=== PATIENT | male | born 1950 | race Caucasian/White ===

== ENCOUNTER → 2020-03-10 11:30 | Outpatient (BNVA) | payer MEDICARE, SELFPAY | PROVIDERS: Visit Provider Urology | DX: R97.21 Rising PSA following treatment for malignant neoplasm of prostate (principal); C61 Malignant neoplasm of prostate | CPT/HCPCS: Q3014 ==

== ENCOUNTER → 2020-07-01 11:19 | Outpatient (BNVA) | payer MEDICARE, SELFPAY | PROVIDERS: PCP Internal Medicine; Visit Provider Urology | DX: C79.82 Secondary malignant neoplasm of genital organs (principal); C61 Malignant neoplasm of prostate | CPT/HCPCS: Q3014 ==

== ENCOUNTER → 2020-12-21 13:46 | Outpatient (BNVA) | payer MEDICARE, SELFPAY | PROVIDERS: PCP Internal Medicine; Visit Provider Urology | DX: C79.82 Secondary malignant neoplasm of genital organs (principal); R97.21 Rising PSA following treatment for malignant neoplasm of prostate | CPT/HCPCS: Q3014 ==

== ENCOUNTER → 2021-03-23 14:21 | Outpatient (BNVA) | payer MEDICARE, SELFPAY | PROVIDERS: PCP Internal Medicine; Visit Provider Urology | DX: C79.82 Secondary malignant neoplasm of genital organs (principal) | CPT/HCPCS: Q3014 ==

== ENCOUNTER → 2021-07-27 13:21 | Outpatient (BNVA) | payer MEDICARE, SELFPAY | PROVIDERS: PCP Internal Medicine; Visit Provider Urology | DX: Z13.89 Encounter for screening for other disorder (principal) | CPT/HCPCS: Q3014 ==

== ENCOUNTER → 2021-11-29 11:11 | Outpatient (BNVA) | payer MEDICARE, SELFPAY | PROVIDERS: PCP Internal Medicine; Visit Provider Urology | DX: C61 Malignant neoplasm of prostate (principal); C79.51 Secondary malignant neoplasm of bone | CPT/HCPCS: 99212 ==

== ENCOUNTER → 2022-03-01 10:57 | Outpatient (BNVA) | payer MEDICARE, SELFPAY | PROVIDERS: PCP Internal Medicine; Visit Provider Urology | DX: C61 Malignant neoplasm of prostate (principal); C79.51 Secondary malignant neoplasm of bone | CPT/HCPCS: 99212 ==

== ENCOUNTER → 2022-06-01 08:47 | Outpatient (BNVA) | payer MEDICARE, SELFPAY | PROVIDERS: PCP Internal Medicine; Visit Provider Urology | DX: C61 Malignant neoplasm of prostate (principal); C79.51 Secondary malignant neoplasm of bone | CPT/HCPCS: Q3014 ==

== ENCOUNTER → 2022-08-30 14:23 | Outpatient (BNVA) | payer MEDICARE, SELFPAY | PROVIDERS: PCP Internal Medicine; Visit Provider Urology | DX: C61 Malignant neoplasm of prostate (principal); C79.51 Secondary malignant neoplasm of bone | CPT/HCPCS: 99212 ==

== ENCOUNTER 2023-01-03 09:24 | Outpatient (AMB) | payer MEDICARE, SELFPAY ==
--- NOTE | 2023-01-03 09:32 | A.OFFVIS_ITS ---
Intake Intake Visit Reasons: 4M PSA/TESTOSTERONE(sent) Intake Note: Patient is present for Follow Up Urology Med: Finasteride Antibiotic Allergy: None Blood Thinner: None [facility]acy[facility] Allergies No Known Allergies Allergy (Verified 08/30/22 14:50) HPI HPI Comments History of Present Illness Details Victor Manuel is a very pleasant male. He is a patient of Dr. Vasquez. 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 02/07 Intermittent hormone therapy 18 mo nth series of GnRH Has PSA recurrent prostate cancer. Prior treatment brachytherapy and now on intermittent hormones. He would prefer allow T to recover and only have next PSA shot when PSA in the 4-8 range. Prostate cancer was diagnosed June 2005 - elevated PSA mid 2015 - good response to 5AR suggestive of BPH recurrence rather than prostate cancer. The [place] grade is 3+3, PSA at diagnosis 4.9, PSA jennifer = 0.2. TNM Classification of Malignant Tumours (TNM) T1c Initial therapy included brachytherapy in September 2005. Therapy for metastatic/CRPC included 01/22/18 GnRH 6m first dose + finasteride 02/08 , GnRH agonist Recent labs included a PSA (prostate-specific antigen) June 2014 1.3, Nov 2015 2.2, Mar 2016 0.9,October 2016 1.3, Apr 2017 1.7, 09/07 2.3, 01/08 3.0, - 05/11, a PSA (prostate-specific antigen) < 0.1, T < 3, 08/09 0.1, T < 3, 11/08 PSA < 0.1, T 39, 02/08 PSA < 0.1, T 830, 05/12 PSA < 0.1, T < 3, 11/09 PSA < 0.1 T 4, 02/09 PSA 0.1, T 825 - 07/11 PSA <0.1, 10/11 0.2, 03/13 0.3. 07/12 0.5, 02/11 0.7 Recent imaging included 10/08 , a CT (computed tomography) scan - no evidence of metastatic disease 10/08 Bone Scan - suspicious lesions on right ribs 01/08 XRay right rib confirm small 6th rib lesion 08/09 New uptake at left femur 08/09 , a DEXA scan, showing osteopenia/osteoporosis - osteopenia 02/08 , a bone scan, small rema lesions no progression - 11/09 bone scan - no progression - 07/11 bone scan no progression still with some uptake, - 07/12 bone scan with multifocal osteoblastic stable disease - 02/11 bone scan stable osteoblastic multifocal rib lesions - 07/13 bone scan stable osteoblastic multifocal rib lesion PFSH Medical History BPH (benign prostatic hyperplasia) Coronary artery disease Elevated PSA H/O sigmoidoscopy History of brachytherapy Osteoporosis Prostate cancer Surgical History History of appendectomy Review of Systems Const Denies chills and Denies fever(s) Card Reports no additional complaints and Denies syncope Resp Denies cough GI Denies abdominal pain and Denies heartburn Reports as per HPI and Denies change in libido Neuro Denies syncope Psych Denies change in libido Endo Denies change in libido Physical Exam Const General: cooperative, healthy appearing, comfortable and no acute distress Orientation/consciousness: patient oriented x3 HEENT Face and sinus: Yes normal facial exam Mouth: moist mucous membranes Neck Neck: Yes normal visual inspection, Yes full ROM and Yes trachea midline Chest Chest palpation & inspection: normal inspection of the chest Resp Effort & Inspection: normal respiratory effort, able to speak in complete sentences and no respiratory distress GI Inspection: Yes normal to inspection Back/Spine/Pelvis Cervical Spine: normal cervical lordosis Thoracic/Lumbar Spine: thoracic and lumbar spine normal to inspection Skin General skin exam: no rashes or lesions noted Neuro General: patient oriented x3, gait normal, tone normal and moves all extremities Extrem General: Yes normal to inspection and Yes capillary refill normal Assessment & Plan Assessment & Plan (1) Prostate cancer metastatic to bone: Code(s): C61 - Malignant neoplasm of prostate; C79.51 - Secondary malignant neoplasm of bone Plan Four month follow-up psa tele Orders: Orders Prostate Specific Antigen 4 Months C61 - Malignant neoplasm of prostate, C79.51 - Secondary malignant neoplasm of bone Patient Instructions: Imaging studies, laboratory and physical exam results were discussed and reviewed in detail. No major barriers to patient understanding were identified. An opportunity to ask questions regarding the treatment plan was provided. All questions were answered. The patient expressed understanding and agreement with the above treatment plan. The patient is aware they should contact our office by phone for worsening of their current condition or the appearance of new urologic symptoms. Compliance is encouraged with any medications and followup testing that is ordered. It is a privilege to participate in the urologic care of your patient. If you have any questions or concerns regarding treatment for the above conditions, or other urologic issues, please do not hesitate to contact me. The office telephone contact is [phone]. This note is constructed using voice recognition software. While every effort has been made to ensure accuracy cut off saw operator pipe blanks errors may have been included. Yours sincerely, Dr Elias Schwartz MD, [facility] - Urology Providers of Expert, Compassionate Care for the Genitourinary System Coding Level of Care Code Est Pt Level 3 (76425) Diagnoses Prostate cancer metastatic to bone C61; C79.51
== END 2023-01-03 09:42 | disposition home or self-care (01) ==
PROVIDERS: PCP Internal Medicine; Visit Provider Urology
DX: C61 Malignant neoplasm of prostate (principal); C79.51 Secondary malignant neoplasm of bone
CPT/HCPCS: 99213

== ENCOUNTER → 2023-01-03 09:24 | Outpatient (BNVA) | payer MEDICARE, SELFPAY | PROVIDERS: Visit Provider Urology | DX: C61 Malignant neoplasm of prostate (principal); C79.51 Secondary malignant neoplasm of bone | CPT/HCPCS: 99212 ==

== ENCOUNTER 2023-05-01 09:04 | Outpatient (AMB) | payer MEDICARE, SELFPAY ==
--- NOTE | 2023-05-01 09:04 | MHC.OFFVIS ---
Intake Intake Visit Reasons: 4M PSA(set) Intake Note: Patient is Present for Telephone Follow Up PSA Urology Med: Finasteride Antibiotic Allergy: None Blood Thinner: None PSA 04/18/23- 2.4 Allergies No Known Allergies Allergy (Verified 05/01/23 09:12) Medication List - Last Reconciled 05/01/23 by Elias Schwartz MD alendronate 70 mg PO DAILY amlodipine 5 mg PO DAILY atorvastatin 40 mg PO BEDTIME finasteride 5 mg PO DAILY 90 days lisinopril 5 mg PO DAILY metoprolol succinate ER 50 mg PO DAILY HPI HPI Comments History of Present Illness Details Victor Manuel is a very pleasant male. He is a patient of Dr. Vasquez. He is seen for the following urologic conditions - prostate cancer - stable osteoblastic metastatic bone disease Telemedicine Evaluation 15 min Consultation [email or web address] Curt Video attempted PSA continues to remain stable Anti androgens cycling with finasteride Testosterone has recovered Threshold for restarting GnRH we would be PSA approximately 4-6 08/13 stable PSA, stable bone scan PSA 07/12 0.5, 11/11 0.8 T 926, 02/11 0.7, 05/15 1.7, 08/13 1.5, 12/13 1.9 T 1000, 05/16 2.4, Metastatic: Initial therapy 2005 with recurrence. 02/07 Intermittent hormone therapy 18 month series of GnRH Has PSA recurrent prostate cancer. Prior treatment brachytherapy and now on intermittent hormones. He would prefer allow T to recover and only have next PSA shot when PSA in the 4-8 range. Prostate cancer was diagnosed June 2005 - elevated PSA mid 2015 - good response to 5AR suggestive of BPH recurrence rather than prostate cancer. The [place] grade is 3+3, PSA at diagnosis 4.9, PSA jennifer = 0.2. TNM Classification of Malignant Tumours (TNM) T1c Initial therapy included brachytherapy in September 2005. Therapy for metastatic/CRPC included 01/22/18 GnRH 6m first dose + finasteride 02/08 , GnRH agonist Recent labs included a PSA (prostate-specific antigen) June 2014 1.3, Nov 2015 2.2, Mar 2016 0.9,October 2016 1.3, Apr 2017 1.7, 09/07 2.3, 01/08 3.0, - 05/11, a PSA (prostate-specific antigen) < 0.1, T < 3, 08/09 0.1, T < 3, 11/08 PSA < 0.1, T 39, 02/08 PSA < 0.1, T 830, 05/12 PSA < 0.1, T < 3, 11/09 PSA < 0.1 T 4, 02/09 PSA 0.1, T 825 - 07/11 PSA <0.1, 10/11 0.2, 03/13 0.3. 07/12 0.5, 02/11 0.7 Recent imaging included 10/08 , a CT (computed tomography) scan - no evidence of metastatic disease 10/08 Bone Scan - suspicious lesions on right ribs 01/08 XRay right rib confirm small 6th rib lesion 08/09 New uptake at left femur 08/09 , a DEXA scan, showing osteopenia/osteoporosis - osteopenia 02/08 , a bone scan, small rema lesions no progression - 11/09 bone scan - no progression - 07/11 bone scan no progression still with some uptake, - 07/12 bone scan with multifocal osteoblastic stable disease - 02/11 bone scan stable osteoblastic multifocal rib lesions - 07/13 bone scan stable osteoblastic multifocal rib lesion PFSH Medical History History of brachytherapy H/O sigmoidoscopy Coronary artery disease Osteoporosis Elevated PSA BPH (benign prostatic hyperplasia) Prostate cancer Surgical History History of appendectomy Review of Systems Const All systems reviewed & are unremarkable except as noted in HPI and below Reports no additional complaints Resp Reports no additional complaints GI Reports no additional complaints Reports as per HPI Musc Reports no additional complaints Physical Exam Telemedicine evaluation Appropriate responses Regular breathing rate and rhythm HEENT Head: Yes normal to inspection Ears: hearing grossly normal bilaterally Eyes General: appearance normal, both eyes and all related structures Neck Neck: Yes normal visual inspection Chest Chest palpation & inspection: normal inspection of the chest Resp Effort & Inspection: normal respiratory effort and able to speak in complete sentences Assessment & Plan Assessment & Plan (1) Prostate cancer metastatic to bone: Code(s): C61 - Malignant neoplasm of prostate; C79.51 - Secondary malignant neoplasm of bone Plan 4 month f/u labs and bone scan Orders: Orders Prostate Specific Antigen 4 Months C61 - Malignant neoplasm of prostate, C79.51 - Secondary malignant neoplasm of bone Testosterone, Total 4 Months C61 - Malignant neoplasm of prostate, C79.51 - Secondary malignant neoplasm of bone NM bone scan whole body 4 Months C61 - Malignant neoplasm of prostate, C79.51 - Secondary malignant neoplasm of bone Patient Instructions: Imaging studies, laboratory and physical exam results were discussed and reviewed in detail. No major barriers to patient understanding were identified. An opportunity to ask questions regarding the treatment plan was provided. All questions were answered. The patient expressed understanding and agreement with the above treatment plan. The patient is aware they should contact our office by phone for worsening of their current condition or the appearance of new urologic symptoms. Compliance is encouraged with any medications and followup testing that is ordered. It is a privilege to participate in the urologic care of your patient. If you have any questions or concerns regarding treatment for the above conditions, or other urologic issues, please do not hesitate to contact me. The office telephone contact is [phone]. This note is constructed using voice recognition software. While every effort has been made to ensure accuracy mother baby rn errors may have been included. Yours sincerely, Dr Elias Schwartz MD, [facility] - Urology Providers of Expert, Compassionate Care for the Genitourinary System Telehealth Telehealth Location of provider rendering services: practice address Location of patient: address on file Patient Identification confirmed using: Name, : Yes Telehealth method: video Patient verbally consented to treatment: Yes Patient verbally consented to billing insurance company: Yes Patient informed of any privacy concerns related to visit: Yes Coding Level of Care Code Tele Est Pt Level 4 (06750) Diagnoses Prostate cancer metastatic to bone C61; C79.51
== END 2023-05-01 10:13 | disposition home or self-care (01) ==
LOC: HO.HUSH 09:04
PROVIDERS: PCP Internal Medicine; Visit Provider Urology
DX: C61 Malignant neoplasm of prostate (principal); C79.51 Secondary malignant neoplasm of bone
CPT/HCPCS: 99213

== ENCOUNTER → 2023-05-01 09:04 | Outpatient (BNVA) | payer MEDICARE, SELFPAY | PROVIDERS: PCP Internal Medicine; Visit Provider Urology ==

== ENCOUNTER 2023-08-31 10:10 | Outpatient (AMB) | payer MEDICARE, SELFPAY ==
--- NOTE | 2023-08-31 10:28 | A.OFFVIS_ITS ---
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 He is a patient of Dr. Vasquez. He is seen for the following urologic conditions - prostate cancer - stable osteoblastic metastatic bone disease PSA continues to remain stable Anti androgens cycling with finasteride Testosterone has recovered Threshold for restarting GnRH we would be PSA approximately 4-6 PSA 07/12 0.5, 11/11 0.8 T 926, 02/11 0.7, 05/15 1.7, 08/13 1.5, 12/13 1.9 T 1000, 05/16 2.4, 09/13 2.8 1046 Remains on alendronate for osteopenia Plan for repeat labs and bone scan in 4 months Metastatic: Initial therapy 2005 with recurrence. 02/07 Intermittent hormone therapy 18 month series of GnRH Has PSA recurrent prostate cancer. Prior treatment brachytherapy and now on intermittent hormones. He would prefer allow T to recover and only have next PSA shot when PSA in the 4-8 range. Prostate cancer was diagnosed June 2005 - elevated PSA mid 2015 - good response to 5AR suggestive of BPH recurrence rather than prostate cancer. The [place] grade is 3+3, PSA at diagnosis 4.9, PSA jennifer = 0.2. TNM Classification of Malignant Tumours (TNM) T1c Initial therapy included brachytherapy in September 2005. Therapy for metastatic/CRPC included 01/22/18 GnRH 6m first dose + finasteride Recent labs included a PSA (prostate-specific antigen) June 2014 1.3, Nov 2015 2.2, Mar 2016 0.9,October 2016 1.3, Apr 2017 1.7, 09/07 2.3, 01/08 3.0, - 05/11, a PSA (prostate-specific antigen) < 0.1, T < 3, 08/09 0.1, T < 3, 11/08 PSA < 0.1, T 39, 02/08 PSA < 0.1, T 830, 05/12 PSA < 0.1, T < 3, 11/09 PSA < 0.1 T 4, 02/09 PSA 0.1, T 825 - 07/11 PSA <0.1, 10/11 0.2, 03/13 0.3. 07/12 0.5, 02/11 0.7 Recent imaging included 10/08 , a CT (computed tomography) scan - no evidence of metastatic disease 10/08 Bone Scan - suspicious lesions on right ribs 01/08 XRay right rib confirm small 6th rib lesion 08/09 New uptake at left femur 08/09 , a DEXA scan, showing osteopenia/osteoporosis - osteopenia 02/08 , a bone scan, small rema lesions no progression - 11/09 bone scan - no progression - 07/11 bone scan no progression still with some uptake, - 07/12 bone scan with multifocal osteoblastic stable disease - 02/11 bone scan stable osteoblastic multifocal rib lesions - 08/13 bone scan stable osteoblastic multifocal rib lesion PFSH Medical History History of brachytherapy H/O sigmoidoscopy Coronary artery disease Osteoporosis Elevated PSA BPH (benign prostatic hyperplasia) Prostate cancer Surgical History History of appendectomy Review of Systems Const Denies chills and Denies fever(s) Card Reports no additional complaints and Denies syncope Resp Denies cough GI Denies abdominal pain and Denies heartburn Reports as per HPI and Denies change in libido Neuro Denies syncope Psych Denies change in libido Endo Denies change in libido Physical Exam Const General: cooperative, healthy appearing, comfortable and no acute distress Orientation/consciousness: patient oriented x3 HEENT Face and sinus: Yes normal facial exam Mouth: moist mucous membranes Neck Neck: Yes normal visual inspection, Yes full ROM and Yes trachea midline Chest Chest palpation & inspection: normal inspection of the chest Resp Effort & Inspection: normal respiratory effort, able to speak in complete sentences and no respiratory distress GI Inspection: Yes normal to inspection Back/Spine/Pelvis Cervical Spine: normal cervical lordosis Thoracic/Lumbar Spine: thoracic and lumbar spine normal to inspection Skin General skin exam: no rashes or lesions noted Neuro General: patient oriented x3, gait normal, tone normal and moves all extremities Extrem General: Yes normal to inspection and Yes capillary refill normal Assessment & Plan Assessment & Plan (1) Prostate cancer metastatic to bone: Code(s): C61 - Malignant neoplasm of prostate; C79.51 - Secondary malignant neoplasm of bone Category: Medical Plan Four month follow-up bone scan PSA Orders: Orders NM bone scan whole body 4 Months C61 - Malignant neoplasm of prostate, C79.51 - Secondary malignant neoplasm of bone Prostate Specific Antigen 4 Months C61 - Malignant neoplasm of prostate, C79.51 - Secondary malignant neoplasm of bone Patient Instructions: Imaging studies, laboratory and physical exam results were discussed and reviewed in detail. No major barriers to patient understanding were identified. An opportunity to ask questions regarding the treatment plan was provided. All questions were answered. The patient expressed understanding and agreement with the above treatment plan. The patient is aware they should contact our office by phone for worsening of their current condition or the appearance of new urologic symptoms. Compliance is encouraged with any medications and followup testing that is ordered. It is a privilege to participate in the urologic care of your patient. If you have any questions or concerns regarding treatment for the above conditions, or other urologic issues, please do not hesitate to contact me. The office telephone contact is [phone]. This note is constructed using voice recognition software. While every effort has been made to ensure accuracy service manager errors may have been included. Yours sincerely, Dr Elias Schwartz MD, [facility] - Urology Providers of Expert, Compassionate Care for the Genitourinary System Coding Level of Care Code Est Pt Level 4 (67741) Diagnoses Prostate cancer metastatic to bone C61; C79.51
== END 2023-08-31 11:11 | disposition home or self-care (01) ==
PROVIDERS: PCP Internal Medicine; Visit Provider Urology
DX: C61 Malignant neoplasm of prostate (principal); C79.51 Secondary malignant neoplasm of bone
CPT/HCPCS: 99213

== ENCOUNTER → 2023-08-31 10:10 | Outpatient (BNVA) | payer MEDICARE, SELFPAY | PROVIDERS: PCP Internal Medicine; Visit Provider Urology | DX: C61 Malignant neoplasm of prostate (principal); C79.51 Secondary malignant neoplasm of bone | CPT/HCPCS: 99212 ==

== ENCOUNTER 2024-01-01 09:26 | Outpatient (AMB) | payer MEDICARE, SELFPAY ==
--- NOTE | 2024-01-01 09:30 | A.OFFVIS_ITS ---
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 He is a patient of Dr. Vasquez. He is seen for the following urologic conditions - prostate cancer - stable osteoblastic metastatic bone disease Four month follow-up PSA continues to remain stable Anti androgens cycling with finasteride Testosterone has recovered Threshold for restarting GnRH we would be PSA approximately 4-6 PSA 07/12 0.5, 11/11 0.8 T 926, 02/11 0.7, 05/15 1.7, 08/13 1.5, 12/13 1.9 T 1000, 05/16 2.4, 09/13 2.8 1046, 01/14 3.4 T 837 Remains on alendronate for osteopenia Metastatic: Initial therapy 2005 with recurrence. 02/07 Intermittent hormone therapy 18 month series of GnRH Has PSA recurrent prostate cancer. Prior treatment brachytherapy and now on intermittent hormones. He would prefer allow T to recover and only have next PSA shot when PSA in the 4-8 range. Prostate cancer was diagnosed June 2005 - elevated PSA mid 2015 - good response to 5AR suggestive of BPH recurrence rather than prostate cancer. The [place] grade is 3+3, PSA at diagnosis 4.9, PSA jennifer = 0.2. TNM Classification of Malignant Tumours (TNM) T1c Initial therapy included brachytherapy in September 2005. Therapy for metastatic/CRPC included 01/22/18 GnRH 6m first dose + finasteride Recent labs included a PSA (prostate-specific antigen) June 2014 1.3, Nov 2015 2.2, Mar 2016 0.9,October 2016 1.3, Apr 2017 1.7, 09/07 2.3, 01/08 3.0, - 05/11, a PSA (prostate-specific antigen) < 0.1, T < 3, 08/09 0.1, T < 3, 11/08 PSA < 0.1, T 39, 02/08 PSA < 0.1, T 830, 05/12 PSA < 0.1, T < 3, 11/09 PSA < 0.1 T 4, 02/09 PSA 0.1, T 825 - 07/11 PSA <0.1, 10/11 0.2, 03/13 0.3. 07/12 0.5, 02/11 0.7 Recent imaging included 10/08 , a CT (computed tomography) scan - no evidence of metastatic disease 10/08 Bone Scan - suspicious lesions on right ribs 01/08 XRay right rib confirm small 6th rib lesion 08/09 New uptake at left femur 08/09 , a DEXA scan, showing osteopenia/osteoporosis - osteopenia 02/08 , a bone scan, small rema lesions no progression - 11/09 bone scan - no progression - 07/11 bone scan no progression still with some uptake, - 07/12 bone scan with multifocal osteoblastic stable disease - 02/11 bone scan stable osteoblastic multifocal rib lesions - 08/13 bone scan stable osteoblastic multifocal rib lesion - stable right rib lesions. [facility] Medical History History of brachytherapy H/O sigmoidoscopy Coronary artery disease Osteoporosis Elevated PSA BPH (benign prostatic hyperplasia) Prostate cancer Surgical History History of appendectomy Review of Systems Const Denies chills and Denies fever(s) Card Reports no additional complaints and Denies syncope Resp Denies cough GI Denies abdominal pain and Denies heartburn Reports as per HPI and Denies change in libido Neuro Denies syncope Psych Denies change in libido Endo Denies change in libido Physical Exam Const General: cooperative, healthy appearing, comfortable and no acute distress Orientation/consciousness: patient oriented x3 HEENT Face and sinus: Yes normal facial exam Mouth: moist mucous membranes Neck Neck: Yes normal visual inspection, Yes full ROM and Yes trachea midline Chest Chest palpation & inspection: normal inspection of the chest Resp Effort & Inspection: normal respiratory effort, able to speak in complete sentences and no respiratory distress GI Inspection: Yes normal to inspection Back/Spine/Pelvis Cervical Spine: normal cervical lordosis Thoracic/Lumbar Spine: thoracic and lumbar spine normal to inspection Skin General skin exam: no rashes or lesions noted Neuro General: patient oriented x3, gait normal, tone normal and moves all extremities Extrem General: Yes normal to inspection and Yes capillary refill normal Assessment & Plan Assessment & Plan (1) Prostate cancer metastatic to bone: Code(s): C61 - Malignant neoplasm of prostate; C79.51 - Secondary malignant neoplasm of bone Category: Medical (2) Prostate cancer: Code(s): C61 - Malignant neoplasm of prostate Category: Medical Plan Four month follow-up labs tele Orders: Orders Prostate Specific Antigen 4 Months C61 - Malignant neoplasm of prostate Patient Instructions: Imaging studies, laboratory and physical exam results were discussed and revie wed in detail. No major barriers to patient understanding were identified. An opportunity to ask questions regarding the treatment plan was provided. All questions were answered. The patient expressed understanding and agreement with the above treatment plan. The patient is aware they should contact our office by phone for worsening of their current condition or the appearance of new urologic symptoms. Compliance is encouraged with any medications and followup testing that is ordered. It is a privilege to participate in the urologic care of your patient. If you have any questions or concerns regarding treatment for the above conditions, or other urologic issues, please do not hesitate to contact me. The office telephone contact is [phone]. This note is constructed using voice recognition software. While every effort has been made to ensure accuracy ceramic engineer errors may have been included. Yours sincerely, Dr Elias Schwartz MD, [facility] - Urology Providers of Expert, Compassionate Care for the Genitourinary System Coding Level of Care Code Est Pt Level 3 (97750) Diagnoses Prostate cancer metastatic to bone C61; C79.51 Prostate cancer C61
== END 2024-01-01 10:05 | disposition home or self-care (01) ==
PROVIDERS: PCP Internal Medicine; Visit Provider Urology
DX: C61 Malignant neoplasm of prostate (principal); C79.51 Secondary malignant neoplasm of bone
CPT/HCPCS: 99213

== ENCOUNTER → 2024-01-01 09:26 | Outpatient (BNVA) | payer MEDICARE, SELFPAY | PROVIDERS: PCP Internal Medicine; Visit Provider Urology | DX: C61 Malignant neoplasm of prostate (principal); C79.51 Secondary malignant neoplasm of bone | CPT/HCPCS: 99212 ==

== ENCOUNTER 2024-05-02 09:12 | Outpatient (AMB) | payer MEDICARE, SELFPAY ==
--- NOTE | 2024-05-02 09:13 | A.OFFVIS_ITS ---
Intake Visit Reasons: 4M PSA(Elevated) Intake Note: Pt presents to the office today as a telehealth appt for a 4 month PSA. Allergies No Known Allergies Allergy (Verified 05/02/24 09:13) HPI Comments Details: Victor Manuel is a very pleasant male. He is a patient of Dr. Vasquez. 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 02/07 Intermittent hormone therapy 18 month series of GnRH Has PSA recurrent prostate cancer. Prior treatment brachytherapy and now on intermittent hormones. He would prefer allow T to recover and only have next PSA shot when PSA in the 4-8 range. Prostate cancer was diagnosed June 2005 - elevated PSA mid 2015 - good response to 5AR suggestive of BPH recurrence rather than prostate cancer. The [place] grade is 3+3, PSA at diagnosis 4.9, PSA jennifer = 0.2. TNM Classification of Malignant Tumours (TNM) T1c Initial therapy included brachytherapy in September 2005. Therapy for metastatic/CRPC included 01/22/18 GnRH 6m first dose + finasteride Recent labs included a PSA (prostate-specific antigen) June 2014 1.3, Nov 2015 2.2, Mar 2016 0.9,October 2016 1.3, Apr 2017 1.7, 09/07 2.3, 01/08 3.0, - 05/11, a PSA (prostate-specific antigen) < 0.1, T < 3, 08/09 0.1, T < 3, 11/08 PSA < 0.1, T 39, 02/08 PSA < 0.1, T 830, 05/12 PSA < 0.1, T < 3, 11/09 PSA < 0.1 T 4, 02/09 PSA 0.1, T 825 - 07/11 PSA <0.1, 10/11 0.2, 03/13 0.3. 07/12 0.5, 02/11 0.7 Recent imaging included 10/08 , a CT (computed tomography) scan - no evidence of metastatic disease 10/08 Bone Scan - suspicious lesions on right ribs 01/08 XRay right rib confirm small 6th rib lesion 08/09 New uptake at left femur 08/09 , a DEXA scan, showing osteopenia/osteoporosis - osteopenia 02/08 , a bone scan, small rema lesions no progression - 11/09 bone scan - no progression - 07/11 bone scan no progression still with some uptake, - 07/12 bone scan with multifocal osteoblastic stable disease - 02/11 bone scan stable osteoblastic multifocal rib lesions - 08/13 bone scan stable osteoblastic multifocal rib lesion - stable right rib lesions. [facility], [facility] Medical History History of brachytherapy H/O sigmoidoscopy Coronary artery disease Osteoporosis Elevated PSA BPH (benign prostatic hyperplasia) Prostate cancer Surgical History History of appendectomy Review of Systems Const All systems reviewed & are unremarkable except as noted in HPI and below Reports no additional complaints Resp Reports no additional complaints GI Reports no additional complaints Reports as per HPI Musc Reports no additional complaints Physical Exam Telemedicine evaluation Appropriate responses Regular breathing rate and rhythm HEENT Head: Yes normal to inspection Ears: hearing grossly normal bilaterally Eyes General: appearance normal, both eyes and all related structures Neck Neck: Yes normal visual inspection Chest Chest palpation & inspection: normal inspection of the chest Resp Effort & Inspection: normal respiratory effort and able to speak in complete sentences Telehealth Telehealth Telehealth Platform: [facility] Location of provider rendering services: practice address Location of patient: address on file Patient Identification confirmed using: Name, : Yes Telehealth method: video Patient verbally consented to treatment: Yes Patient verbally consented to billing insurance company: Yes Patient informed of any privacy concerns related to visit: Yes Minutes spent on Phone/Video with Pt.: 15 Assessment & Plan Assessment & Plan (1) Prostate cancer metastatic to bone: Code(s): C61 - Malignant neoplasm of prostate; C79.51 - Secondary malignant neoplasm of bone Category: Medical Plan 4m f/u imaging with labs G Code G2211 Has been applied in accordance with CMS guidelines ( Medicare and Medicaid programs; [place] 2023 Payment Policies ) to convey the inherent complexity in ongoing patient care within the urology clinic. This deliberate utilization aligns with the visits complexity associated with medical care services serving as a focal point for necessary healthcare, addressing the patient's singular serious or complex condition. This judicious use ensure was appropriate reimbursement, especially in the context of managing such conditions within our specialized, longitudinal urologic practice. This patient has a complex and chronic urologic condition that requires longitudinal follow-up. [facility], Medicare and Medicaid programs; [place] 2023 Payment Policies Fed. Reg 88 (85): 98949-36777 (Nov.272022) Orders: Orders Prostate Specific Antigen 4 Months C61 - Malignant neoplasm of prostate, C79.51 - Secondary malignant neoplasm of bone NM bone scan whole body 4 Months C61 - Malignant neoplasm of prostate, C79.51 - Secondary malignant neoplasm of bone Patient Instructions: Imaging studies, laboratory and physical exam results were discussed and reviewed in detail. No major barriers to patient understanding were identified. An opportunity to ask questions regarding the treatment plan was provided. All questions were answered. The patient expressed understanding and agreement with the above treatment plan. The patient is aware they should contact our office by phone for worsening of their current condition or the appearance of new urologic symptoms. Compliance is encouraged with any medications and followup testing that is ordered. It is a privilege to participate in the urologic care of your patient. If you have any questions or concerns regarding treatment for the above conditions, or other urologic issues, please do not hesitate to contact me. The office telephone contact is [phone]. This note is constructed using voice recognition software. While every effort has been made to ensure accuracy station supervisor errors may have been included. Yours sincerely, Dr Elias Schwartz MD, [facility] - Urology Providers of Expert, Compassionate Care for the Genitourinary System Coding Level of Care Code Tele Est Pt Level 3 (14416) Complex EM visit Add On G2211 Diagnoses Prostate cancer metastatic to bone C61; C79.51
== END 2024-05-02 10:39 | disposition home or self-care (01) ==
LOC: HO.HUSH 09:12
PROVIDERS: PCP Internal Medicine; Visit Provider Urology
DX: C61 Malignant neoplasm of prostate (principal); C79.51 Secondary malignant neoplasm of bone
CPT/HCPCS: 99213; G2211

== ENCOUNTER → 2024-05-02 09:12 | Outpatient (BNVA) | payer MEDICARE, SELFPAY | PROVIDERS: PCP Internal Medicine; Visit Provider Urology ==

== ENCOUNTER → 2024-10-07 13:50 | Outpatient (BNVA) | payer MEDICARE, SELFPAY | PROVIDERS: PCP Internal Medicine; Visit Provider Urology ==

== ENCOUNTER 2024-10-22 08:58 | Outpatient (AMB) | payer MEDICARE, SELFPAY ==
--- NOTE | 2024-10-22 09:00 | A.OFFVIS_ITS ---
Intake Visit Reasons: bone scan /PSA Intake Note: Patient is present for BONE SCAN/PSA Urology Medication:finasteride Antibiotic Allergy:none Blood Thinner:none Cost And Risk Analysis Manager Required: No Allergies No Known Allergies Allergy (Verified 10/22/24 09:02) HPI Comments Details: Victor Manuel is a very pleasant male. He is a patient of Dr. Vasquez. 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 Degenerative changes through shoulders, hips and ankles. Recommend restarting GnRH with abiraterone plus prednisone PSA 07/12 0.5, 11/11 0.8 T 926, 02/11 0.7, 05/15 1.7, 08/13 1.5, 12/13 1.9 T 1000, 05/16 2.4, 09/13 2.8 1046, 01/14 3.4 T 837, 04/15 4.3, 09/14 5.8 Remains on alendronate for osteopenia Metastatic: Initial therapy 2005 with recurrence. 02/07 Intermittent hormone therapy 18 month series of GnRH Has PSA recurrent prostate cancer. Prior treatment brachytherapy and now on intermittent hormones. He would prefer allow T to recover and only have next PSA shot when PSA in the 4-8 range. Prostate cancer was diagnosed June 2005 - elevated PSA mid 2015 - good response to 5AR suggestive of BPH recurrence rather than prostate cancer. The [place] grade is 3+3, PSA at diagnosis 4.9, PSA jennifer = 0.2. TNM Classification of Malignant Tumours (TNM) T1c Initial therapy included brachytherapy in September 2005. Therapy for metastatic/CRPC included 01/22/18 GnRH 6m first dose + fi nasteride Recent labs included a PSA (prostate-specific antigen) June 2014 1.3, Nov 2015 2.2, Mar 2016 0.9,October 2016 1.3, Apr 2017 1.7, 09/07 2.3, 01/08 3.0, - 05/11, a PSA (prostate-specific antigen) < 0.1, T < 3, 08/09 0.1, T < 3, 11/08 PSA < 0.1, T 39, 02/08 PSA < 0.1, T 830, 05/12 PSA < 0.1, T < 3, 11/09 PSA < 0.1 T 4, 02/09 PSA 0.1, T 825 - 07/11 PSA <0.1, 10/11 0.2, 03/13 0.3. 07/12 0.5, 02/11 0.7 Recent imaging included 10/08 , a CT (computed tomography) scan - no evidence of metastatic disease 10/08 Bone Scan - suspicious lesions on right ribs 01/08 XRay right rib confirm small 6th rib lesion 08/09 New uptake at left femur 08/09 , a DEXA scan, showing osteopenia/osteoporosis - osteopenia 02/08 , a bone scan, small rema lesions no progression - 11/09 bone scan - no progression - 07/11 bone scan no progression still with some uptake, - 07/12 bone scan with multifocal osteoblastic stable disease - 02/11 bone scan stable osteoblastic multifocal rib lesions - 08/13 bone scan stable osteoblastic multifocal rib lesion - stable right rib lesions. [facility] Medical History History of brachytherapy H/O sigmoidoscopy Coronary artery disease Osteoporosis Elevated PSA BPH (benign prostatic hyperplasia) Prostate cancer Surgical History History of appendectomy Review of Systems Const Denies chills and Denies fever(s) Card Reports no additional complaints and Denies syncope Resp Denies cough GI Denies abdominal pain and Denies heartburn Reports as per HPI and Denies change in libido Neuro Denies syncope Psych Denies change in libido Endo Denies change in libido Physical Exam Const General: cooperative, healthy appearing, comfortable and no acute distress Orientation/consciousness: patient oriented x3 HEENT Face and sinus: Yes normal facial exam Mouth: moist mucous membranes Neck Neck: Yes normal visual inspection, Yes full ROM and Yes trachea midline Chest Chest palpation & inspection: normal inspection of the chest Resp Effort & Inspection: normal respiratory effort, able to speak in complete sentences and no respiratory distress GI Inspection: Yes normal to inspection Back/Spine/Pelvis Cervical Spine: normal cervical lordosis Thoracic/Lumbar Spine: thoracic and lumbar spine normal to inspection Skin General skin exam: no rashes or lesions noted Neuro General: patient oriented x3, gait normal, tone normal and moves all extremities Extrem General: Yes normal to inspection and Yes capillary refill normal Assessment & Plan Assessment & Plan (1) Prostate cancer metastatic to bone: Code(s): C61 - Malignant neoplasm of prostate; C79.51 - Secondary malignant neoplasm of bone Category: Medical (2) Rising PSA following treatment for malignant neoplasm of prostate: Code(s): R97.21 - Rising PSA following treatment for malignant neoplasm of prostate Category: Medical Plan GNRH Addition antiandrogen Three-month follow-up lab work tele Orders: Orders Complete Blood Count no Diff 3 Months C61 - Malignant neoplasm of prostate, C79.51 - Secondary malignant neoplasm of bone Testosterone, Total 3 Months C61 - Malignant neoplasm of prostate, C79.51 - Secondary malignant neoplasm of bone Prostate Specific Antigen 3 Months C61 - Malignant neoplasm of prostate, C79.51 - Secondary malignant neoplasm of bone Medications: New abiraterone must be taken on empty stomach, at least 1 hr before or 2 hrs after a meal/food 1,000 mg (4 x 250 mg) PO DAILY 120 tabs 5RF 30 days C61 - Malignant neoplasm of prostate, C79.51 - Secondary malignant neoplasm of bone, R97.21 - Rising PSA following treatment for malignant neoplasm of prostate prednisone 2.5 mg PO BID 60 tabs 5RF 30 days C61 - Malignant neoplasm of prostate, 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 While every effort has been made to ensure accuracy engine wiper errors may have been included. Imaging studies, laboratory and physical exam results were discussed and reviewed in detail. No major barriers to patient understanding were identified. An opportunity to ask questions regarding the treatment plan was provided. All questions were answered. The patient expressed understanding and agreement with the above treatment plan. The patient is aware they should contact our office by phone for worsening of their current condition or the appearance of new urologic symptoms. Compliance is encouraged with any medications and followup testing that is ordered. It is a privilege to participate in the urologic care of your patient. If you have any questions or concerns regarding treatment for the above conditions, or other urologic issues, please do not hesitate to contact me. The office telephone contact is [phone]. Sincerely, Dr Elias Schwartz MD, [facility] - Urology Compassionate Specialist Care for the Genitourinary System Coding Level of Care Code Est Pt Level 4 (45266) Diagnoses Prostate cancer metastatic to bone C61; C79.51 Rising PSA following treatment for malignant neoplasm of prostate R97.21
--- OUTSIDE RECORDS SUMMARY | 2024-10-22 09:07 | XMS_ITS | Clinical Summary ---
Author Organization [facility] Address [address] [place] [address] Care Team Providers Care Litigation Services Manager Name Role Phone Unavailable Primary Care Provider Unavailabl e Social History Tobacco Use Types Packs/Day Years Used Date Smoking Tobacco: Never Assessed Sex and Gender Information Value Date Recorded Sex Assigned at Not on file Legal Sex Male 3:08 PM EDT Gender Identity Not on file Sexual Orientation Not on file Plan of Treatment Health Maintenance Due Date Last Done Comments Hepatitis C Virus Screening 1950 DTaP/Tdap/Td Vaccines (1 - Tdap) 10/21/1967 Pneumococcal Vaccines 50+ (1 of 1 - PCV) 1998 Zoster (Shingles) Vaccine (1 of 2) 1998 RSV Vaccine 60 years and old er and Patients (1 - 1-dose 75+ series) 10/21/2023 COVID-19 Vaccine ( - 2023-2 5 season) 2023 Hepatitis B Vaccines Aged Out No long er eligible based on patient's age to complete this topic
== END 2024-10-22 09:57 | disposition home or self-care (01) ==
LOC: HO.HUSH 08:59
PROVIDERS: PCP Internal Medicine; Visit Provider Urology
DX: C61 Malignant neoplasm of prostate (principal); C79.51 Secondary malignant neoplasm of bone; R97.21 Rising PSA following treatment for malignant neoplasm of prostate
CPT/HCPCS: 99214

== ENCOUNTER → 2024-10-22 08:58 | Outpatient (BNVA) | payer MEDICARE, SELFPAY | PROVIDERS: PCP Internal Medicine; Visit Provider Urology | DX: R97.21 Rising PSA following treatment for malignant neoplasm of prostate (principal); C61 Malignant neoplasm of prostate; C79.51 Secondary malignant neoplasm of bone | CPT/HCPCS: 99212 ==

== ENCOUNTER 2024-11-28 13:17 | Outpatient (AMB) | payer MEDICARE, SELFPAY ==
--- OUTSIDE RECORDS SUMMARY | 2024-11-28 13:19 | XMS_ITS | Clinical Summary ---
Author Organization [facility] Address [address] [place] [address] Phone Care Team Providers Care Frame Cleaner Name Role Phone Orlando Vasquez MD Primary Care Provider [phone] Social History Tobacco Use Types Packs/Day Years Used Date Smoking Tobacco: Never Smokeless Tobacco: Never Alcohol Use Standard Drinks/Week Comments Never 0 (1 standard drink = 0.6 oz pur e alcohol) Sex and Gender Information Value Date Recorded Sex Assigned at Not on file Legal Sex Male 8:35 AM EST Gender Identity Not on file Sexual Orientation Not on file Obstetrics History Last Filed Vital Signs Vital Sign Reading Time Taken Comments Blood Pressure 138/82 08/20/2023 10:49 AM EDT Sitting R Arm Pulse 59 08/20/2023 10:49 AM EDT Temperature - - Respiratory Rate - - Oxygen Saturation - - Inhaled Oxygen Concentration - - Weight 70.9 kg (156 lb 6.4 oz) 08/20/2023 10:49 AM EDT Height 170.2 cm (5' 7 ) 08/20/2023 10:4 9 AM EDT Body Mass Index 24.5 08/20/2023 10:49 AM EDT Plan of Treatment Upcoming Encounters Date Type Department Care Team (Late st Contact Info) Description 03/16/2025 1:30 PM EST Office Visit [facility] [place] [facility] [address] [place] [id number] Atul Goddard MD [address] [place] [address],[address] [address] Health Maintenance Due Date Last Done Comments DTaP,Tdap,and Td Vaccines (1 - Tdap) 10/21/1967 Pneumococcal Vaccine: 50+ Ye ars (1 of 1 - PCV) 1998 Zoster Vaccines (1 of 2) 1998 Cholesterol Screening (Lipid Panel) 04/01/2022 Falls Risk Assessment 04/01/2022 Hepatitis C Screening 04/01/2022 Hypertension/CHF/CAD Annual BMP Blood Test 04/01/2022 Medicare Annual Wellness Visit 04/01/2022 Social Influencers of Health Screening 04/01/2022 RSV Immunization Adult Patie nts (1 - 1-dose 75+ series) 10/21/2023 COVID-19 Vaccine (1 - 2023-2 5 season) 2023 Depression Screening 04/23/2024 Influenza Vaccine (#1) 2024 03/22/2021 HIB Vaccines Aged Out No longer eligi ble based on patient's age to complete this topic HPV Vaccines Aged Out No longer eligi ble based on patient's age to complete this topic Hepatitis A Vaccines Aged Out No long er eligible based on patient's age to complete this topic Hepatitis B Vaccines Aged Out No long er eligible based on patient's age to complete this topic IPV Vaccines Aged Out No longer eligi ble based on patient's age to complete this topic MMR Vaccines Aged Out No longer eligi ble based on patient's age to complete this topic Meningococcal ACWY Vaccine Aged Out N o longer eligible based on patient's age to complete this topic Meningococcal B Vaccine Aged Out No l onger eligible based on patient's age to complete this topic RSV Immunization Patients Un jailene 20 months Aged Out No longer eligible b ased on patient's age to complete this topic Varicella Vaccines Aged Out No longer eligible based on patient's age to complete this topic Insurance [facility] MEDICARE Care Teams Frame Cleaner Relationship Specialty Start Date End Date Orlando Vasquez MD [address] PCP - General 06/24/18
--- OUTSIDE RECORDS SUMMARY | 2024-11-28 13:19 | XMS_ITS | Clinical Summary ---
Author Organization [facility] Address [address] [place] [address] Care Team Providers Care Customer Technical Services Manager Name Role Phone Unavailable Primary [...]
--- NOTE | 2024-11-28 13:29 | AM.OFFVISNUR ---
Intake Visit Reasons: GNRH Allergies No Known Allergies Allergy (Verified 10/22/24 09:02) Office Meds Eligard (6 month) 45 mg (6 month) subcutaneous syringe Performing Provider: Elias Schwartz MD [facility] Administered by: Ramiro Lynne LPN on 11/28/24 13:29 Dose Route Admin Location Dispensed Lot Number Expiration Date [facility] Disability Counselor 45 mg subcut left arm 45 mg [id number] 12/22/25 58410-311-92 [employer]. Total Dispensed Waste 45 mg 0 % Assessment & Plan Assessment & Plan Orders: Orders AMB Leuprolide Injection - Practice Supplied Today C61 - Malignant neoplasm of prostate, C79.51 - Secondary malignant neoplasm of bone Coding
== END 2024-11-28 13:43 | disposition home or self-care (01) ==
LOC: HO.HUSH 13:17
PROVIDERS: PCP Internal Medicine; Visit Provider Urology
DX: C61 Malignant neoplasm of prostate (principal); C79.51 Secondary malignant neoplasm of bone

== ENCOUNTER → 2024-11-28 13:17 | Outpatient (BNVA) | payer MEDICARE, SELFPAY | PROVIDERS: PCP Internal Medicine; Visit Provider Urology | DX: Z51.11 Encounter for antineoplastic chemotherapy (principal); C61 Malignant neoplasm of prostate; C79.51 Secondary malignant neoplasm of bone; Z79.818 Long term (current) use of other agents affecting estrogen receptors and estrogen levels | CPT/HCPCS: 96402; J9217 ==

== ENCOUNTER 2025-01-23 10:58 | Outpatient (AMB) | payer MEDICARE, SELFPAY ==
--- NOTE | 2025-01-23 10:56 | MHC.OFFVIS ---
Intake Visit Reasons: 3m/PSA/Testo Intake Note: patient presents today for: 3m/PSA/testo urology medications: abiraterone, finasteride blood thinners: none labs done 01/06/25: CBC, PSA 1.2, testo <3 [employer] Required: No Accompanied by: Self / Same As Patient Allergies No Known Allergies Allergy (Verified 01/23/25 11:03) HPI Comments Details: Victor Manuel is a very pleasant male. He is a patient of Dr. Vasquez. 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 Degenerative changes through shoulders, hips and ankles. Recommend restarting GnRH with abiraterone plus prednisone PSA 07/12 0.5, 11/11 0.8 T 926, 02/11 0.7, 05/15 1.7, 08/13 1.5, 12/13 1.9 T 1000, 05/16 2.4, 09/13 2.8 1046, 01/14 3.4 T 837, 04/15 4.3, 09/14 5.8 Remains on alendronate for osteopenia Metastatic: Initial therapy 2005 with recurrence. 02/07 Intermittent hormone therapy 18 month series of GnRH Has PSA recurrent prostate cancer. Prior treatment brachytherapy and now on intermittent hormones. He would prefer allow T to recover and only have next PSA shot when PSA in the 4-8 range. Prostate cancer was diagnosed June 2005 - elevated PSA mid 2015 - good response to 5AR suggestive of BPH recurrence rather than prostate cancer. The [place] grade is 3+3, PSA at diagnosis 4.9, PSA jennifer = 0.2. TNM Classification of Malignant Tumours (TNM) T1c Initial therapy included brachytherapy in September 2005. Therapy for metastatic/CRPC included 01/22/18 GnRH 6m first dose + finasteride Recent labs included a PSA (prostate-specific antigen) June 2014 1.3, Nov 2015 2.2, Mar 2016 0.9,October 2016 1.3, Apr 2017 1.7, 09/07 2.3, 01/08 3.0, - 05/11, a PSA (prostate-specific antigen) < 0.1, T < 3, 08/09 0.1, T < 3, 11/08 PSA < 0.1, T 39, 02/08 PSA < 0.1, T 830, 05/12 PSA < 0.1, T < 3, 11/09 PSA < 0.1 T 4, 02/09 PSA 0.1, T 825 - 07/11 PSA <0.1, 10/11 0.2, 03/13 0.3. 07/12 0.5, 02/11 0.7 Recent imaging included 10/08 , a CT (computed tomography) scan - no evidence of metastatic disease 10/08 Bone Scan - suspicious lesions on right ribs 01/08 XRay right rib confirm small 6th rib lesion 08/09 New uptake at left femur 08/09 , a DEXA scan, showing osteopenia/osteoporosis - osteopenia 02/08 , a bone scan, small rema lesions no progression - 11/09 bone scan - no progression - 07/11 bone scan no progression still with some uptake, - 07/12 bone scan with multifocal osteoblastic stable disease - 02/11 bone scan stable osteoblastic multifocal rib lesions - 08/13 bone scan stable osteoblastic multifocal rib lesion - stable right rib lesions. COUNTS INCLUDE 234 BEDS AT [facility] Medical History (Updated 01/23/25 @ 11:35 by Elias Schwartz MD) History of brachytherapy H/O sigmoidoscopy Coronary artery disease Osteoporosis Elevated PSA BPH (benign prostatic hyperplasia) Prostate cancer Surgical History History of appendectomy Review of Systems Const Denies chills and Denies fever(s) Card Reports no additional complaints and Denies syncope Resp Denies cough GI Denies abdominal pain and Denies heartburn Reports as per HPI and Denies change in libido Neuro Denies syncope Psych Denies change in libido Endo Denies change in libido Physical Exam Const General: cooperative, healthy appearing, comfortable and no acute distress Orientation/consciousness: patient oriented x3 HEENT Face and sinus: Yes normal facial exam Mouth: moist mucous membranes Neck Neck: Yes normal visual inspection, Yes full ROM and Yes trachea midline Chest Chest palpation & inspection: normal inspection of the chest Resp Effort & Inspection: normal respiratory effort, able to speak in complete sentences and no respiratory distress GI Inspection: Yes normal to inspection Back/Spine/Pelvis Cervical Spine: normal cervical lordosis Thoracic/Lumbar Spine: thoracic and lumbar spine normal to inspection Skin General skin exam: no rashes or lesions noted Neuro General: patient oriented x3, gait normal, tone normal and moves all extremities Extrem General: Yes normal to inspection and Yes capillary refill normal Assessment & Plan Assessment & Plan (1) Prostate cancer metastatic to bone: Code(s): C61 - Malignant neoplasm of prostate; C79.51 - Secondary malignant neoplasm of bone Category: Medical (2) Osteoporosis: Code(s): M81.0 - Age-related osteoporosis without current pathological fracture Category: Medical Plan Follow-up early May GnRH and lab work Orders: Orders Prostate Specific Antigen 3 Months C61 - Malignant neoplasm of prostate, C79.51 - Secondary malignant neoplasm of bone Testosterone, Total 3 Months C61 - Malignant neoplasm of prostate, C79.51 - Secondary malignant neoplasm of bone Medications: Changed From alendronate 70 mg PO DAILY C61 - Malignant neoplasm of prostate, C79.51 - Secondary malignant neoplasm of bone To alendronate 70 mg PO QWEEK 12 tabs 1RF 90 days C61 - Malignant neoplasm of prostate, C79.51 - Secondary malignant neoplasm of bone Patient Instructions: This note is constructed using voice recognition software. While every effort has been made to ensure accuracy manager civil errors may have been included. Imaging studies, laboratory and physical exam results were discussed and reviewed in detail. No major barriers to patient understanding were identified. An opportunity to ask questions regarding the treatment plan was provided. All questions were answered. The patient expressed understanding and agreement with the above treatment plan. The patient is aware they should contact our office by phone for worsening of their current condition or the appearance of new urologic symptoms. Compliance is encouraged with any medications and followup testing that is ordered. It is a privilege to participate in the urologic care of your patient. If you have any questions or concerns regarding treatment for the above conditions, or other urologic issues, please do not hesitate to contact me. The office telephone contact is [phone]. Sincerely, Dr Elias Schwartz MD, [facility] - Urology Compassionate Specialist Care for the Genitourinary System Coding Level of Care Code Est Pt Level 3 (52219) Complex EM visit Add On G2211 Diagnoses Prostate cancer metastatic to bone C61; C79.51 Osteoporosis M81.0
--- OUTSIDE RECORDS SUMMARY | 2025-01-23 12:16 | XMS_ITS | Clinical Summary ---
Author Organization [facility] Address [address] [place] [address] Phone Care Team Providers Care Hspt Tutor Name Role Phone Orlando Vasquez MD Primary Care Provider [phone] Social History Tobacco Use Types Packs/Day Years [...] Description 03/16/2025 1:30 PM EST Office Visit [facility] [address] [facility] [place] [address] Atul Goddard MD [address] [place] [address],[address] [id number] Health Maintenance Due Date Last Done Comments [...] nts (1 - 1-dose 75+ series) 10/21/2023 Depression Screening 04/23/2024 COVID-19 Vaccine ( - 2023-2 5 season) 2024 Influenza Vaccine (#1) 2024 03/22/2021 HIB Vaccines [...] patient's age to complete this topic Insurance [facility] Care Teams Hspt Tutor Relationship Specialty Start Date End Date Orlando Vasquez MD [address] PCP - General 06/24/18
--- OUTSIDE RECORDS SUMMARY | 2025-01-23 12:16 | XMS_ITS | Clinical Summary ---
Author Organization [facility] Address [address] [place] [address] Care Team Providers Care Licensed Audiologist Name Role Phone Unavailable Primary Care Provider Unavailabl e Social History Tobacco Use Types Packs/Day Years Used Date Smoking Tobacco: Never Assessed Sex and Gender Information Value Date Recorded Sex Assigned at Not on file Legal Sex Male 3:08 PM EDT Gender Identity Not on file Sexual Orientation Not on file Plan of Treatment Health Maintenance Due Date Last Done Comments Advance Care Planning 1950 Hepatitis C Virus Screening 1950 DTaP/Tdap/Td Vaccines (1 - Tdap) 10/21/1967 Pneumococcal Vaccines 50+ (1 of 1 - PCV) 1998 Zoster (Shingles) Vaccine (1 of 2) 1998 RSV Vaccine 60 years and old er and Patients (1 - 1-dose 75+ series) 10/21/2023 COVID-19 Vaccine ( - 2023-2 5 season) 2024 Hepatitis B Vaccines Aged Out No long er eligible based on patient's age to complete this topic
== END 2025-01-23 11:42 | disposition home or self-care (01) ==
LOC: HO.HUSH 10:59
PROVIDERS: PCP Internal Medicine; Visit Provider Urology
DX: C61 Malignant neoplasm of prostate (principal); C79.51 Secondary malignant neoplasm of bone; M81.0 Age-related osteoporosis without current pathological fracture
CPT/HCPCS: 99213; G2211

== ENCOUNTER → 2025-01-23 10:58 | Outpatient (BNVA) | payer MEDICARE, SELFPAY | PROVIDERS: PCP Internal Medicine; Visit Provider Urology | DX: C61 Malignant neoplasm of prostate (principal); C79.51 Secondary malignant neoplasm of bone; M81.0 Age-related osteoporosis without current pathological fracture | CPT/HCPCS: 99212 ==